=== PATIENT | male | born 1960 | race Two or more races ===

== ENCOUNTER 2024-07-30 10:00 | Day surgery (SDC) | payer OTHER, SELFPAY ==
[2024-07-29 14:38] VITALS: BMI 34.0
[2024-07-30] VITALS (12 sets, daily range): BP systolic 97–143; BP diastolic 61–88; PULSE 62–73; RESP 15–20; TEMP 36.4–36.5; O2SAT 93–98; BMI 35.6
[2024-07-30] MEDS: DiphenhydrAMINE INJ 50 MG/ML VIAL 25 MG IV (11:52)
[2024-07-30] MEDS: SODIUM CHLORIDE 0.9% 250 ML 250 ML 125 ML IV (12:08)
[2024-07-30] MEDS: MIDAZOLAM INJ 1 MG/ML VIAL 2 ML (ASD USE ONLY) 2 MG IV (12:08)
[2024-07-30] MEDS: fentaNYL CIT INJ 50 mCg/ML AMP 2ML (ASD USE ONLY) IV (12:08)
== END 2024-07-30 13:15 | disposition home or self-care (01) ==
PROVIDERS: PCP Family Medicine; Referring Provider Internal Medicine Gastroenterology; Visit Provider Internal Medicine Gastroenterology
PROC: 0DBE8ZX Excision of Large Intestine, Via Natural or Artificial Opening Endoscopic, Diagnostic (ICD-10-PCS; CPT 45380; principal; 2024-07-30 13:00)
PROC: (CPT 43239; 2024-07-30 13:00)
DX: D12.4 Benign neoplasm of descending colon (principal); K64.1 Second degree hemorrhoids; K57.30 Diverticulosis of large intestine without perforation or abscess without bleeding; K29.50 Unspecified chronic gastritis without bleeding; K29.70 Gastritis, unspecified, without bleeding; K29.80 Duodenitis without bleeding
CPT/HCPCS: 45385; 45380; C1726; J1200; J2250; J3010; J7050

== ENCOUNTER → 2024-09-17 | Outpatient (CLI) | payer OTHER, SELFPAY ==
--- NOTE | 2024-09-17 08:30 | XR_ITS ---
Examination: MRI lumbar spine without contrast Date and time of exam: September 17, 2024 0910 hours INDICATIONS: Lower back pain radiating to the legs with numbness in the legs one year worse the last 5 months Technique: Multiple MRI axial and sagittal sections lumbar spine. Sagittal T2-weighted images, TR 3500, TE 118 T1 weighted transverse sections, TR 688 T8.5, T2-weighted sagittal sections T1 weighted sagittal sections TR 621, TE 30 T2 axial sections, TR 4, 190, TE 84. Findings: Adequate alignment lumbar vertebral bodies Disc desiccation L2-L3, L3-L4, L4-L5 No lumbar fracture Adequate marrow signal lumbar vertebral bodies L5-S1 no disc protrusion L4-L5 2 mm central lumbar disc bulge L3-L4 foraminal disc bulges each 3 mm with no ganglionic compression L2-L3 no disc protrusion L1-L2 no disc protrusion IMPRESSION: Lumbar disc desiccation L2-L3, L3-L4, L4-L5 L4-L5 2 mm central lumbar disc bulge
--- NOTE | 2024-09-17 09:00 | XR_ITS ---
Examination: MRI thoracic spine without contrast. Date and time of exam: September 17, 2024 0837 hours INDICATIONS: Mid back pain one year worse the last 5 months Technique: Multiple sagittal and axial images of the thoracic spine have been obtained. T1 weighted localizer, sagittal T2 weighted images, TR 30-50, TE 148, T1 weighted sagittal images, TR 650, TE 14, T2-weighted transverse images, TR 6770, TE 142 Findings: Adequate alignment thoracic vertebral bodies on the lateral view Mild diffuse thoracic disc narrowing Mild thoracic spondylosis Axial images demonstrate no focal thoracic disc protrusion No localized enlargement thoracic cord No thoracic syrinx cavity Impression: Mild diffuse thoracic degenerative disc disease No significant acquired spinal stenosis
== END | disposition home or self-care (01) ==
LOC: SMRI 08:16
PROVIDERS: PCP Physician Assistant; Referring Provider Nurse Practitioner Family; Visit Provider Nurse Practitioner Family
DX: M51.34 Other intervertebral disc degeneration, thoracic region (principal); M51.369 Other intervertebral disc degeneration, lumbar region without mention of lumbar back pain or lower extremity pain
CPT/HCPCS: 72146; 72148

== ENCOUNTER 2025-01-02 08:25 | Day surgery (SDC) | payer OTHER, SELFPAY ==
[2025-01-02] VITALS (7 sets, daily range): BP systolic 113–157; BP diastolic 73–91; PULSE 51–56; RESP 13–20; TEMP 36.3–36.5; O2SAT 94–100; BMI 34.0
[2025-01-02] MEDS: RINGERS LACTATED 1000 ML 1,000 ML 125 ML IV (09:52)
[2025-01-02] MEDS: fentaNYL CIT INJ 50 mCg/ML AMP 2ML (ASD USE ONLY) IVP (09:53)
[2025-01-02] MEDS: MIDAZOLAM INJ 1 MG/ML VIAL 2 ML (ASD USE ONLY) 2 MG IVP (09:53)
[2025-01-02] MEDS: BENZOCAINE 20% (Hurricaine) SPRAY 1 DOSE TOP (09:53)
== END 2025-01-02 10:50 | disposition home or self-care (01) ==
PROVIDERS: PCP Physician Assistant; Referring Provider Internal Medicine Gastroenterology; Visit Provider Internal Medicine Gastroenterology
PROC: (CPT 43239; principal; 2025-01-02 10:00)
DX: K29.70 Gastritis, unspecified, without bleeding (principal); E11.9 Type 2 diabetes mellitus without complications; Q39.9 Congenital malformation of esophagus, unspecified; K44.9 Diaphragmatic hernia without obstruction or gangrene; K29.50 Unspecified chronic gastritis without bleeding; K20.80 Other esophagitis without bleeding; K31.89 Other diseases of stomach and duodenum
CPT/HCPCS: 43239; J1200; J2250; J3010; J7120; A9270

== ENCOUNTER 2025-05-06 06:22 | Emergency (ER) | payer OTHER, MEDICAID, SELFPAY ==
[2025-05-06] VITALS (7 sets, daily range): BP systolic 121–125; BP diastolic 75–79; PULSE 87–115; RESP 14–21; TEMP 36.7–37.4; O2SAT 93–98; BMI 34.0
--- NOTE | 2025-05-06 06:26 | EDNOTE_ITS ---
ED Chest Pain RME/HPI General Chief Complaint: Chest Pain Stated Complaint: CHEST PAIN Time Seen by Provider: 05/06/25 06:26 Arrival date/time: 05/06/25 06:22 RME / HPI RME / HPI narrative: Dr. Venegas?s Main ED Evaluation: 64yo male with a history of HTN, HLD BIBA from home presents to the ED for a chief complaint of chest pain that radiates to his back x 3 days. Patient reports associated productive cough, shortness of breath, and fever. Denies any other associated symptoms. NKA. Related Data Home Medications ?Medication ?Instructions ?Recorded ?Confirmed losartan 100 1 tab PO QDAY 07/30/2401/01 mg-hydrochlorothiazide 25 mg tablet Allergies Allergy/AdvReac Type Severity Reaction Status Date / Time No Known Allergies Allergy Verified 01/01/25 14:05 Review of Systems Review of Systems Systems Reviewed: All systems reviewed, normal except as documented Past Medical History Past Medical History CARDIAC: Positive Cardiac Disorders and Hypertension GASTROINTESTINAL: Positive Gastrointestinal Disorders (Dysphagia) Social History SMOKING STATUS: Never smoker ED Exam Narrative Physical exam: GENERAL APPEARANCE: alert and oriented x 4, well-developed, well-nourished, no acute distress VITALS: All vitals were reviewed and the pulse ox is % on room air, which is normal according to my interpretation. HEENT: Normocephalic, atraumatic; pupils equal, round, reactive to light; EOMI; mucous membranes pink, moist; nasal congestion, oropharynx clear NECK: Supple LUNGS: CTABL; no wheezes, no rales, no rhonchi HEART: Regular rate, regular rhythm; normal S1, S2; no murmurs ABDOMEN: non distended; normal BS; soft, no tenderness, no guarding, no rebound; no masses, no organomegaly, no hernia BACK: no CVA tenderness EXTREMITIES: atraumatic; no edema NEUROLOGIC: awake; alert and oriented x4; cranial nerves II-XII grossly intact; no focal sensory or motor deficits PSYCHIATRIC: appropriate mood and affect SKIN: warm, dry, normal color; no rashes Course Course Course Narrative: CXR is ordered for determining the etiology of chest pain. Quality Measures none Orders Category Date Time Status Bedside COVID-19 Antigen Test NOW Care 05/06/25 08:20 Completed Health Program Director NOW Care 05/06/25 06:36 Completed EKG (ED ONLY) *Do not use* NOW Care 05/06/25 06:36 Completed EKG (ED Only) Stat Exams 05/06/25 06:36 Draft XR chest 1V portable Stat Exams 05/06/25 06:36 Completed B-Type Natriuretic Peptide Stat Lab 05/06/25 06:43 Completed CBC Stat Lab 05/06/25 06:43 Completed Comprehensive Metabolic Panel Stat Lab 05/06/25 06:43 Completed Influenza A & B Rapid Panel Stat Lab 05/06/25 08:35 Completed Lipase Stat Lab 05/06/25 06:43 Completed Magnesium Stat Lab 05/06/25 06:43 Completed Partial Thromboplastin Time Stat Lab 05/06/25 06:43 Completed Prothrombin Time with INR Stat Lab 05/06/25 06:43 Completed Troponin I Stat Lab 05/06/25 06:43 Completed Aspirin Chew Med 05/06/25 06:46 Discontinued 324 mg PO X1 ONE Magnesium Oxide [Mag-Ox 400] Med 05/06/25 11:07 Discontinued 400 mg PO X1 ONE MethylPREDNISolone.* [SoluMEDROL Inj] Med 05/06/25 06:37 Discontinued 125 mg IVP X1 ONE Reevaluation(s) Reevaluation #1: On reassessment the patient reports feeling improved. Saturating 94% on room air. Patient remains clinically stable throughout the emergency department visit. We reviewed all the results, analysis, and treatment plans. Patient is amenable to discharge. Strict return precautions were outlined. Time: 11:08 Vital Signs Vital signs: Vital Signs Temperature 99.4 F 05/06/25 06:35 Pulse Rate 104 H 05/06/25 06:35 Respiratory Rate 20 05/06/25 06:35 Blood Pressure 125/79 05/06/25 06:35 Pulse Oximetry (%) 93 L 05/06/25 06:35 Oxygen Delivery Method Room Air 05/06/25 06:35 Pulse ox is 93% on room air which is low. Chest Pain MDM Narrative MDM Narrative:: Scribe Attestation: 05/06/25 - Jena Zhang am scribing for and in the pre sence of Dr. Venegas. Liss Zhang am scribing for and in the presence of Dr. Venegas. Patient data External records reviewed:: [facility] previous records (Per chart review, patient has no previous ED visits or admissions to this facility.) Clinical information provided by:: patient Social determinants that could affect healthcare access:: none Patient has the following chronic illnesses:: HTN, HLD How is presenting disease/condition affected by chronic disease/condition?: uneffected by Evaluation data The following diagnostics were reviewed and interpreted by me:: lab results, radiology exam(s) and EKG tracing(s) Lab and/or radiology exams considered but not ordered:: none Interpretation Summary: EKG done at 0653, sinus rhythm, rate of 99, Q wave in lead III and avF, poor R wave progression, flattening of ST segments in diffuse leads, no acute ischemic changes, according to my interpretation. Ordering Physician: Freida Venegas MD Date of Service: 05/06/25 Procedure(s): XR chest 1V portable Accession Number(s): [id number] cc: Nahid Woodard; Erik Allen MD; Freida Venegas MD~ EXAMINATION: AP chest single view TECHNIQUE: AP portable semiupright chest single view Date and time: May 06, 2025, 0703 hours, comparison June 30, 2016 INDICATIONS: Chest pain today. FINDINGS: Normal heart size Minimal prominence pulmonary vasculature. No pneumonia or pulmonary edema. Moderate osteopenia IMPRESSION: No pneumonia or pulmonary edema Minimal prominence pulmonary vasculature Dictated By: Erik Allen MD Signed By: <Electronically signed by Erik Allen MD in [place]> 05/06/25 0801 Medications / Prescriptions Medications or Prescriptions considered but not ordered:: none Medication administrations:: Medication Administration History Discontinued Medications Aspirin (Aspirin 81 Mg Chew) 324 mg PO X1 ONE Stop: 05/06/25 06:47 Last Admin: 05/06/25 07:15 Dose: Not Given Documented By: SILVIA Non-Admin Reason: Per Dr. Venegas to hold since pt recived EMS Magnesium Oxide (Magnesium Oxide 400 Mg Tablet) 400 mg PO X1 ONE Stop: 05/06/25 11:08 Last Admin: 05/06/25 11:29 Dose: 400 mg Documented By: SILVIA Methylprednisolone Sodium Succinate (Methylprednisolone Sod Succ 62.5 Mg/Ml 2ml Vial) 125 mg IVP X1 ONE Stop: 05/06/25 06:38 Last Admin: 05/06/25 07:21 Dose: 125 mg Documented By: SILVIA see above Consultations Consultation(s) initiated? (list below): No Diagnosis Chest Pain Differential Diagnosis: pneumothorax, stable angina, atypical chest pain, st elevation myocardial infarction, costochondritis, chest pain and biliary colic Most likely diagnosis given after review of the tests above:: URI Admission Indicated Admission indicated?: not indicated Admission Request Was there a request for admission?: No Disposition Plan Disposition Plan: Discharge Discharge Attestation Discharge Attestation: The patient and all family members were given an opportunity to ask questions and understood the discharge instructions. Discharge instructions specifically effects, indications for sooner follow up or return to the emergency department, and the expected course of current diagnosis. Patient condition: Stable Discharge Plan Plan Patient Disposition: HOME (Self Care) Prescriptions/Referrals Prescriptions/Med Rec: No Action losartan-hydrochlorothiazide 100-25 mg tablet 1 tab PO QDAY Referrals: Nahid Torrez [Primary Care Provider] - In 1 week Problem List Clinical Impression: URI, acute Patient/Caregiver Discharge Instructions Education Materials: ED URI, Viral, No Abx (Adult) Print Language: Telugu Stand Alone Forms: Erika Award Info., Patient Portal Info Letter
--- NOTE | 2025-05-06 06:36 | EKG_ITS ---
[facility] Test Date: 2025-05-06 Pat Name: SOHEILA VALDIVIA Department: Room: - Gender: Male Superintendent Institution: : 1960 Requested By: Freida Garcia Order Number: [id number] Reading MD: Freida Garcia Measurements Intervals [place]clean Rate: 99 P: 9 TN: 203 QRS: -56 QRSD: 99 T: 31 QT: 308 QTc: 396 Interpretive Statements SINUS RHYTHM LEFT ANTERIOR FASCICULAR BLOCK [QRS AXIS <= -45, QR IN I, RS IN II] POSSIBLE ANTERIOR MYOCARDIAL INFARCTION , OF INDETERMINATE AGE [30 ms Q WAVE IN V3/V4, OR R < 0.2 mV IN V4] No previous ECG available for comparison /[id number]/[email or web address]/[id number].pdf
--- NOTE | 2025-05-06 06:36 | XR_ITS ---
EXAMINATION: AP chest single view TECHNIQUE: AP portable semiupright chest single view Date and time: May 06, 2025, 0703 hours, comparison June 30, 2016 INDICATIONS: Chest pain today. FINDINGS: Normal heart size Minimal prominence pulmonary vasculature. No pneumonia or pulmonary edema. Moderate osteopenia IMPRESSION: No pneumonia or pulmonary edema Minimal prominence pulmonary vasculature
[2025-05-06] MEDS: MethylPREDNISolone SOD SUCC 62.5 MG/ML 2ML VIAL 125 MG IVP (07:21)
--- NOTE | 2025-05-06 07:32 | PC.NURSE ---
Patient was assessed, he stated he came into the ED for chest pian that feels like stabbing to left side of chest, felt very weak and dizzy this morning, also was diaphoretic all night. Currently patient is alert and oriented, stated the pain to his chest is the same as earlier 12/03 as a stabbing feeling. Sees relay engineer in [place] for angina. Has had an angiogram in the past that was negative. VSS and pt denies any other distress besides chest pain.
[2025-05-06 07:37] LABS: Basophils # (Auto) 0.1 Thou/mm3 (0.0-0.2); Basophils % (Auto) 1 % (0-2.5); Eosinophils # (Auto) 0.0 Thou/mm3 (0.0-0.5); Eosinophils % (Auto) 0 % (0-10); Hematocrit 41.1 % (41.0-53.0); Hemoglobin 14.5 g/dL (13.5-16.0); Immature Granulocytes Auto 0.08 Thou/mm3 (0.00-0.00); Lymphocytes # (Auto) 1.9 Thou/mm3 (1.0-4.8); Lymphocytes % (Auto) 18 % (10-50); Mean Corpuscular HGB Conc 35.3 g/dl (31.0-37.0); Mean Corpuscular Hemoglobin 31.1 pg (25.0-35.0); Mean Corpuscular Volume 88 fL (80-100); Monocytes # (Auto) 1.1 Thou/mm3 (0.0-0.8); Monocytes % (Auto) 10 % (0-12); Neutrophils # (Auto) 7.8 Thou/mm3 (1.8-7.7); Neutrophils % (Auto) 71 % (37-80); Nucleated Red Blood Cell # 0.00 Thou/mm3 (0.00-0.00); Nucleated Red Blood Cell % 0 /100 WBC (0); Platelet Count 242 Thou/mm3 (140-440); RDW Standard Deviation 41.2 fL (35.1-43.9); Red Blood Count 4.66 Miln/mm3 (4.50-5.90); White Blood Count 10.9 Thou/mm3 (3.8-10.6)
[2025-05-06 07:41] LABS: Alanine Aminotransferase 18 U/L (10-49); Albumin, Serum 5.0 gm/dL (3.4-4.8); Albumin/Globulin Ratio 2.4 (1.2-2.2); Alkaline Phosphatase 58 U/L (46-116); Anion Gap 11 (7-16); Aspartate Amino Transferase 19 U/L (0-34); BUN/Creatinine Ratio 8 Ratio (12-20); Bilirubin,Total 0.6 mg/dL (0.3-1.2); Blood Urea Nitrogen 8 mg/dL (9-23); Calcium 9.6 mg/dL (8.3-10.6); Calcium (Corrected) 9.6 mg/dL (8.5-10.1); Carbon Dioxide 26.9 mMol/L (20.0-31.0); Chloride 101 mMol/L (98-107); Creatinine (Component) 1.0 mg/dL (0.6-1.3); Estimated Creatinine Clearance 90.0 mL/min (>60); Globulin 2.1 gm/dL (2.3-3.5); Glucose 126 mg/dL (74-106); Lipase 30 U/L (12-53); Magnesium 1.4 mg/dL (1.6-2.6); Osmolality,Calculated 277 (275-295); Potassium 3.4 mMol/L (3.4-5.1); Sodium 139 mMol/L (136-145); Total Protein 7.1 gm/dL (5.7-8.2); Troponin I < 0.002 ng/mL (0.0-0.045); eGFR > 60 See Note
[2025-05-06 07:47] LABS: INR 1.0 (0.9-1.3); Partial Thromboplastin Time 27.9 Seconds (22.0-36.0); Prothrombin Time 10.9 Seconds (9.0-12.2)
[2025-05-06 08:01] LABS: B-Type Natriuretic Peptide 29 pg/mL (0-100)
[2025-05-06 09:16] LABS: Influenza A Ag Negative; Influenza B Ag Negative
[2025-05-06] MEDS: MAGNESIUM OXIDE 400 MG TABLET PO (11:29)
--- NOTE | 2025-05-06 11:45 | PC.SS ---
MANAGER R D was notified by bedside nurse that patient is needing transportation, MANAGER R D coordinated transportation with [employer], MANAGER R D notified bedside nurse, patient, and patient .
== END 2025-05-06 11:51 | disposition home or self-care (01) ==
PROVIDERS: Emergency Provider Emergency Medicine; PCP Physician Assistant
DX: J06.9 Acute upper respiratory infection, unspecified (principal); E78.5 Hyperlipidemia, unspecified; I10 Essential (primary) hypertension
CPT/HCPCS: 36415; 71045; 80053; 83690; 83735; 83880; 84484; 85025; 85610; 85730; 87502; 87635; 93005; 96374; 99284; J2919; A9270